=== PATIENT | female | born 1990 | race Caucasian/White ===

== ENCOUNTER 2018-08-14 19:51 | Inpatient (IN) | payer OTHER, SELFPAY ==
--- NOTE | 2018-08-14 | APP_PTH ---
PATIENT: MERVAT CASTANO LOC: MS2 U#:[id number] AGE/SX: 28/F ROOM: MS216 RE08/14/[address]: Dr. Harman Lopez MD : 1990 BED: 1 DIS: 08/17/2018 SPEC #: [id number] RECD: 08/15/18 07:45 STATUS: NIKI RERaven #: [id number] BAL: 08/14/18 00:[address]: Harman Lopez DEPT: SURGICAL PATHOLOGY RECD BY: Jordan Lynne ENTERED: 08/15/18 10:12 SP TYPE: APPENDIX OTHR DR: Dr. oYhan Campbell MD Tissues: Appendix, NOS Procedures: Surgery Specimen Level III HEADER OPERATION: Laparoscopic appendectomy PRE-OP DIAGNOSIS: Acute appendicitis TISSUE SUBMITTED: Appendix MICROSCOPIC DIAGNOSIS Appendix, appendectomy: Acute appendicitis. Acute serositis. Benign periappendiceal lymph node. AM:suleiman 08/16/18 COMMENT Case has been reviewed in consultation with Dr. Barrientos who concurs with the above diagnosis. IDC:SJ MICROSCOPIC DESCRIPTION Slides are reviewed. GROSS DESCRIPTION Received is one container labeled with the patient's name and designated appendix. The specimen consists of an appendix measuring 7 cm in length and up to 1 cm in diameter. The attached periappendiceal adipose tissue measures up to 2 cm in width. The serosa is congested. No obvious perforation is identified. Sections of periappendiceal adipose tissue reveal one possible lymph node measuring 0.6 cm in greatest dimension. The lumen does not contain any fecalith. Access Registrar sections are submitted in two cassettes. Cassette 2 also contains the possible lymph node. / TRAVON:suleiman 08/15/18 TC:2 CPT: 51219
[2018-08-14 19:52] VITALS: BP 145/97; PULSE 107; RESP 17; TEMP 36.4; O2SAT 99; BMI 22.2
[2018-08-14 20:16] LABS: Absolute Lymphocyte Count 1.35 X10^3/ul (0.83-4.51); Absolute Neutrophil Count 12.8 X10^3/uL (2.0-7.7); Basophil# 0.02 X10^3/uL; Basophil% 0.1 % (0-1); Eosinophil# 0.06 X10^3/uL; Eosinophils% 0.4 % (0-5); Hematocrit 37.2 % (37-47); Lymphocyte # 1.35 X10^3/ul (4.0); Lymphocyte % 8.9 % (19-41); Mean Corp Hgb Conc 32.3 g/gl (32-36); Mean Corpuscular Hgb 30.4 pg (27.0-32.0); Mean Corpuscular Volume 94.2 fL (81-99); Mean Platelet Vol. 9.7 fl (6.2-12.0); Monocyte# 0.97 X10^3/uL; Monocyte% 6.4 % (0-10); Neutrophil # 12.81 X10^3/uL (2.7-7.7); Neutrophil % 84.1 % (47-70); Platelet Count 304 K/mm3 (150-450); RBC Distribution Width CV 12.8 % (11.6-14.6); RBC Distribution Width SD 43.8 fl (35.1-43.9); Red Blood Count 3.95 M/mm3 (4.2-5.4); White Blood Count 15.2 K/mm3 (4.4-11.0)
[2018-08-14 20:17] LABS: POSITIVE COUNT NO; POSITIVE DIFFERENTIAL NO; POSITIVE MORPHOLOGY NO
[2018-08-14 20:30] LABS: Anion Gap 10 (5-15); BUN 7 mg/dL (7-18); BUN/Creat Ratio 11.4 RATIO (10-20); Calcium,Total 9.2 mg/dL (8.5-10.1); Chloride 100 mmol/L (98-107); Creatinine, Serum 0.61 mg/dL (0.55-1.02); EST Glomerular Filtration Rate 122 mL/min (>60); Est Glom Filt Rate - Afr Amer 147 mL/min (>60); Estimated Creatinine Clearance 96.86 ml/min; Glucose 107 mg/dL (74-106); Potassium 3.8 mmol/L (3.5-5.1); Sodium Level 136 mmol/L (136-145)
[2018-08-14 20:35] LABS: Pregnancy, Serum, hCG Quali. NEGATIVE Negative (0-9 Nonpreg)
--- NOTE | 2018-08-14 21:28 | CT_ITS ---
STUDY: CT ABDOMEN AND PELVIS WITHOUT CONTRAST REASON FOR EXAM: Female, 28 years old. Right lower quadrant pain RADIATION DOSAGE (If Supplied By Facility): CTDIvol = ( 6.05 ) mGy, DLP = ( 272.16 ) mGycm TECHNIQUE: Transaxial images were obtained from the dome of the diaphragm to the symphysis pubis without oral contrast, and without intravenous contrast. Sagittal and coronal images were reconstructed. Individualized dose optimization techniques were used for this CT. COMPARISON: None. FINDINGS: The visualized lung bases are unremarkable. The visualized portions of the heart are within normal limits. Normal liver. Normal gallbladder and extrahepatic biliary system. Normal spleen. Normal pancreas. Normal bilateral adrenal glands. Normal right kidney. Normal left kidney. Normal visualized stomach. Normal small intestine. Diffuse fecal retention in the colon. The appendix is distended with fluid with surrounding inflammation. Appendicoliths are noted with right lower quadrant free fluid. Appendicitis suspected in the proper clinical settings. There are gas droplets within the area of inflammation in the right lower quadrant. It is difficult to tell whether these are extraluminal or intraluminal in location. Right lower quadrant mesenteric adenopathy is noted. Normal abdominal aorta. Normal inferior vena cava. Adenopathy in the retroperitoneum. Normal urinary bladder. There is mild pelvic free fluid. Normal uterus. Normal abdominal wall. Normal osseous structures. CT/Abdomen/Pelvis without Cont IMPRESSION: There are findings compatible with acute appendicitis in the right lower quadrant. Right lower quadrant and pelvic free fluid Right lower quadrant mesenteric and retroperitoneal adenopathy. N.B. : The above information has been verbally conveyed by James Jones DO to Cande Menjivar MD, MD, on 08/14/2018 22:51:44 (ET). Electronically Signed: James Jones DO at 22:47 EST Tel [phone], Service support ,
[2018-08-14] MEDS: Morphine 4 MG/ML Syringe IV ×2 (22:06→23:27)
[2018-08-14] MEDS: Ondansetron 4 MG/2 ML Vial IV (22:06)
--- NOTE | 2018-08-14 22:43 | ED.VISSUMM ---
- ER Visit Summary Date of Service: 08/14/18 Chief Complaint: [Abdominal pain] History of Present Illness: The patient is a 28 F [presents to the emergency department complaint of right-sided abdominal pain. Initially 4 days ago. Patient states that she had some pain with some vomiting initially but then it seemed to go away patient returned 24 hours ago and she is had persistent pain to the right lower quadrant now. Patient has had a little bit of dysuria. She has had no appetite today. She has vomited x2 today. Patient has no medical history. Patient has had prior x2.] Physical Examination: [HEENT-PERRLA, EOMI. Cranial nerves II through XII grossly intact. TMs clear. Mucous membranes moist. No adenopathy. Cardiovascular-regular rate and rhythm without murmur or ectopy Lungs-clear to auscultation, chest wall stable without crepitus or subcu emphysema Abdomen-finished bowel sounds. Patient has tenderness to the right lower quadrant over McBurney's with guarding. Patient has a positive Rovsing sign. Patient has a positive heel strike. Extremities-intact ?4, normal range of motion, normal pulses, atraumatic] Test Results: [CBC with differential obtained showed a white blood cell count of 15.2, hemoglobin 12, hematocrit 37, platelets 304. Chemistries unremarkable. HCG was negative. CT scan of the abdomen pelvis without contrast on my interpretation shows acute appendicitis with a large appendicolith and a distended thick-walled appendix with inflammatory changes around the cecum. I do not appreciate any obvious perforation. Official radiology report pending.] Emergency Department Course and Treatment: [She was medicated with morphine and Zofran. Patient was ordered a liter normal same fluid bolus. Patient started on Zosyn 4.5 g IV. Case was discussed with general surgeon on-call Dr. Harman Lopez who will present to the emergency department to evaluate patient] Treatment Plan: [Surgeon to evaluate patient for OR Disposition: [Admit] Impression: [Acute appendicitis] This note was generated with [employer] dictation software. It may contain incorrect words, spelling, and punctuation that were not noted in review of the chart prior to signing ED Disposition - Plan for ED Patient: Chief Complaint: Abd Pain Referrals: Yohan Campbell [Primary Care Provider] -
--- NOTE | 2018-08-14 22:46 | ED.DCSUM_ITS ---
- ER Visit Summary Date of Service: 08/14/18 Chief Complaint: [Abdominal pain] History of Present Illness: The patient is a 28 F [presents to the emergency department complaint of right-sided abdominal pain. Initially 4 days ago. Patient states that she had some pain with some vomiting initially but then it seemed to go away patient returned 24 hours ago and she is had persistent pain to the right lower quadrant now. Patient has had a little bit of dysuria. She has had no appetite today. She has vomited x2 today. Patient has no medical history. Patient has had prior x2.] Physical Examination: [HEENT-PERRLA, EOMI. Cranial nerves II through XII grossly intact. TMs clear. Mucous membranes moist. No adenopathy. Cardiovascular-regular rate and rhythm without murmur or ectopy Lungs-clear to auscultation, chest wall stable without crepitus or subcu emphysema Abdomen-finished bowel sounds. Patient has tenderness to the right lower quadrant over McBurney's with guarding. Patient has a positive Rovsing sign. Patient has a positive heel strike. Extremities-intact ?4, normal range of motion, normal pulses, atraumatic] Test Results: [CBC with differential obtained showed a white blood cell count of 15.2, hemoglobin 12, hematocrit 37, platelets 304. Chemistries unremarkable. HCG was negative. CT scan of the abdomen pelvis without contrast on my interpretation shows acute appendicitis with a large appendicolith and a distend ed thick-walled appendix with inflammatory changes around the cecum. I do not appreciate any obvious perforation. Official radiology report pending.] Emergency Department Course and Treatment: [She was medicated with morphine and Zofran. Patient was ordered a liter normal same fluid bolus. Patient started on Zosyn 4.5 g IV. Case was discussed with general surgeon on-call Dr. Harman Lopez who will present to the emergency department to evaluate patient] Treatment Plan: [Surgeon to evaluate patient for OR Disposition: [Admit] Impression: [Acute appendicitis] This note was generated with [employer] dictation software. It may contain incorrect words, spelling, and punctuation that were not noted in review of the chart prior to signing ED Disposition - Plan for ED Patient: Chief Complaint: Abd Pain Referrals: Yohan Campbell [Primary Care Provider] -
[2018-08-14 22:59] VITALS: BP 118/70; PULSE 97; RESP 16; TEMP 38.4; O2SAT 100
[2018-08-14 23:01] VITALS: BP 118/70; PULSE 97; RESP 16; TEMP 38.4; O2SAT 100; BMI 22.2
--- NOTE | 2018-08-14 23:17 | HP.PCM_ITS ---
Problem List (1) Appendicitis Status: Acute Qualifiers: Appendicitis type: acute appendicitis Acute appendicitis type: with generalized peritonitis Appendicitis gangrene presence: unspecified whether gangrene present Appendicitis perforation presence: unspecified whether perforation present Appendicitis abscess presence: without abscess Qualified Code(s): K35.20 - Acute appendicitis with generalized peritonitis, without abscess History of Present Illness Date of Admission: 08/14/18 The patient is a 28 year old F presents to the emergency department complaint of right-sided abdominal pain. Initially 4 days ago. Patient states that she had some pain with some vomiting initially but then it seemed to go away patient returned 24 hours ago and she is had persistent pain to the right lower quadrant now. Patient has had a little bit of dysuria. She has had no appetite today. She has vomited x2 today. Patient has no medical history. Patient has had prior x2. CT scan showed a very dilated appendix with a large appendicolith. There did not appear to be any perforation. There did not appear to be any abscess formation. Past Medical History Allergies No Known Allergies Allergy (Verified 08/14/18 19:51) Home Medications: Ambulatory Orders Medication Instructions Recorded Vit No.130/Iron/Folic 1 tab PO TID 08/20/17 [ Tablet] Magnesium 1 tab PO DAILY 08/21/17 Surgical History: - - x2 Smoking Status: Never smoker - *Family History Maternal History Items: No pertinent history Review of Systems Constitutional: Reports: Anorexia, Chills, Weakness, Fatigue Cardiovascular: Denies: Chest Pain, Chest Pressure, Chest Tightness, Palpitations Respiratory: Denies: Cough, Hemoptysis, Shortness of breath at rest, Shortness of breath upon exertion, Wheezing Gastrointestinal: Denies: Abdominal Pain, Constipation, Diarrhea, Hematemesis, Nausea, Melena, Vomiting VTE Information - Inpt Only VTE Present on Admission: No VTE Mechan Device Prophylaxis: SCD's VTE Pharm Prophylaxis ordered?: No Reason prophylaxis not ordered:: Treatment Not Indicated Patient Problems: Active and Suspected Problems Appendicitis (Acute) - Physical Exam General: Alert, Oriented x3, Cooperative Lungs: Clear to auscultation Cardiovascular: Regular rate, Regular Rhythm, No murmurs Abdomen: Rebound Tenderness - She has positive Rovsing sign, Tender Extremities: No clubbing, No cyanosis, No edema Vital Signs Temp Pulse Resp BP Pulse Ox 101.2 F H 97 16 118/70 100 08/14/18 23:01 08/14/18 23:01 08/14/18 23:01 08/14/18 23:01 08/14/18 23:01 Oxygen Delivery Method Room Air Weight: 113 lb 15.664 oz Body Mass Index (BMI) 22.2 Laboratory Tests Past 24 Hrs 08/14/18 08/14/18 08/14/18 20:09 20:09 20:09 WBC 15.2 H RBC 3.95 L Hgb 12.0 Hct 37.2 MCV 94.2 MCH 30.4 MCHC 32.3 RDW 12.8 RDW Differential 43.8 Plt Count 304 MPV 9.7 Immature Gran % (Auto) 0.100 Neut % (Auto) 84.1 H Lymph % (Auto) 8.9 L [place] % (Auto) 6.4 Eos % (Auto) 0.4 Baso % (Auto) 0.1 Absolute Neuts (auto) 12.8 H Absolute Lymphs (auto) 1.35 Total Counted Not Reportable Sodium 136 Potassium 3.8 Chloride 100 Carbon Dioxide 26.0 Anion Gap 10 BUN 7 Creatinine 0.61 Estim Creat Clear Calc 96.86 Est GFR (MDRD) Af Amer 147 Est GFR (MDRD) Non-Af 122 BUN/Creatinine Ratio 11.4 Glucose 107 H Calcium 9.2 Serum , Qual NEGATIVE Assessment/Plan All Active Problems Appendicitis (Acute) PROM with onset of labor more than 24 hours following rupture (Acute) Previous delivery affecting (Acute) Plan will be to perform a laparoscopic appendectomy. Procedure was explained in very common terms all questions asked were answered. Majority of risk are associated with bleeding and infection possible delayed infections and possible need for a drain or possibly to be done in an open fashion. Her presentation is not within a 24-hour. And is much longer I have a feeling this is going to be very difficult acute appendicitis.
[2018-08-15] VITALS (11 sets, daily range): BP systolic 100–118; BP diastolic 55–80; PULSE 81–107; RESP 14–20; TEMP 36.7–38.5; O2SAT 95–100; BMI 22.2; BMI 22.3
--- NOTE | 2018-08-15 00:24 | OP.PCM_ITS ---
Problem List (1) Appendicitis Status: Acute Qualifiers: Appendicitis type: acute appendicitis Acute appendicitis type: with generalized peritonitis Appendicitis gangrene presence: with gangrene Appendicitis perforation presence: with perforation Appendicitis abscess presence: without abscess Qualified Code(s): K35.20 - Acute appendicitis with generalized peritonitis, without abscess; K35.891 - Other acute appendicitis without perforation, with gangrene Report of Operation Date of Procedure: 08/15/18 Pre-Operative Diagnosis: Acute appendicitis Post-Operative Diagnosis: Same Surgery/Procedure Performed:: Laparoscopic appendectomy Type of Anesthesia:: General Anesthesiologist: Donis Caruso Description of Procedure: Patient was brought into the operating room. Placed in the supine position. Under excellent general endotracheal intubation Loo catheter was placed and the abdomen was sterilely prepped and draped in usual fashion. Local was injected infraumbilically a curvilinear incision was made. Fascia was grasped with a Grecia varies needle was placed inside the abdomen the abdomen was insufflated to 15 torr. A 10/12 trocar was placed without difficulty. A suprapubic #5 trocar was placed in the left lower quadrant #5 trocar was placed both of these under direct visualization without injury to underlying structures. Patient was placed in the headdown and rotated to the left. She was noted to have a retrocecal appendix is I dissected the cecum free and I came to where the appendix was I encountered a gangrenous appendix with pus in it. I mobilized the terminal ileum I mobilized the right colon not all the way up to the hepatic flexure. I then dissected the appendix free using the Enseal to come across the mesoappendix and then I came across the base of the appendix with a 45 linear cutter x2. I was able to remove the fecalith without difficulty. I expected the base of the appendix and the cecum which was very indurated and very hard and I did not think that I wanted to do a right hemicolectomy on her since I did not see any stool leaving nor did I see any other pus that I did not drain and irrigate well. I decided to place a 15 round Eddie-Albarran drain through a separate right sided incision. I sutured to the skin with a 3-0 nylon I placed it posteriorly in a retrocecal fashion and then down into the pelvis. I irrigated the right upper quadrant in the pelvis good hemostasis was noted. I removed the trochars under direct visualization good hemostasis was noted. I closed the fascia the umbilical port with figure-of- eight stitch of 0 Vicryl. Skin incisions were closed with septicum stitches of 4-0 Monocryl. This is an extremely difficult appendicitis her symptoms actually started almost 5 days ago and I have a feeling that she is going to need to remain in the hospital several days to receive IV antibiotics. I am going to have to leave the drain in until she is eating well and moving her bowels. I am concerned that we could have a leak given how indurated this is. That being said I thought it was safe not to do a limited cecectomy given the amount of induration that was involved nor did I think doing a right hemicolectomy on her was in her best interest at this juncture. - Admit VTE Documentation VTE Present on Admission: No VTE Mechan Device Prophylaxis: SCD's VTE Pharm Prophylaxis ordered?: No Reason prophylaxis not ordered:: Treatment Not Indicated
[2018-08-15] MEDS: Bupivacaine 0.5% PF 10 ML VIAL (00:31)
[2018-08-15] MEDS: Lactated Ringers 1,000 ML 125 ML IV ×3 (02:34→16:55)
[2018-08-15] MEDS: Ibuprofen 400 MG Tablet 800 MG PO (04:58)
[2018-08-15] MEDS: Piperacil/Tazobactam 3.375 GM/50 ML ML IV ×3 (05:13→21:37)
[2018-08-15] MEDS: HYDROmorphone 1 MG/ML Syringe IV ×3 (07:59→18:17)
[2018-08-15 08:04] LABS: Absolute Lymphocyte Count 0.42 X10^3/ul (0.83-4.51); Absolute Neutrophil Count 8.4 X10^3/uL (2.0-7.7); Basophil# 0.01 X10^3/uL; Basophil% 0.1 % (0-1); Hematocrit 35.3 % (37-47); Hemoglobin 11.4 g/dl (12.0-15.0); Lymphocyte # 0.42 X10^3/ul (4.0); Lymphocyte % 4.4 % (19-41); Mean Corp Hgb Conc 32.3 g/gl (32-36); Mean Corpuscular Hgb 30.5 pg (27.0-32.0); Mean Corpuscular Volume 94.4 fL (81-99); Mean Platelet Vol. 9.5 fl (6.2-12.0); Monocyte# 0.69 X10^3/uL; Monocyte% 7.2 % (0-10); Neutrophil # 8.42 X10^3/uL (2.7-7.7); Neutrophil % 88.2 % (47-70); Platelet Count 242 K/mm3 (150-450); RBC Distribution Width CV 12.9 % (11.6-14.6); RBC Distribution Width SD 44.7 fl (35.1-43.9); Red Blood Count 3.74 M/mm3 (4.2-5.4); White Blood Count 9.6 K/mm3 (4.4-11.0)
[2018-08-15 08:06] LABS: Differential Indicated SCAN CRITERIA MET; POSITIVE COUNT NO; POSITIVE DIFFERENTIAL YES; POSITIVE MORPHOLOGY NO
[2018-08-15 08:07] LABS: ALB/GLOB Ratio 0.8 RATIO (0.9-2.4); AST(SGOT) 8 U/L (15-37); Alanine Aminotransfer ALT/SGPT 12 U/L (13-56); Albumin, Serum 2.8 g/dL (3.2-5.0); Alkaline Phosphatase 40 U/L (45-117); Anion Gap 8 (5-15); BUN 5 mg/dL (7-18); BUN/Creat Ratio 9.6 RATIO (10-20); Calcium,Total 7.9 mg/dL (8.5-10.1); Chloride 104 mmol/L (98-107); Creatinine, Serum 0.52 mg/dL (0.55-1.02); EST Glomerular Filtration Rate 146 mL/min (>60); Est Glom Filt Rate - Afr Amer 176 mL/min (>60); Estimated Creatinine Clearance 113.63 ml/min; Globulin 3.6 g/dL (2.2-4.2); Glucose 116 mg/dL (74-106); Potassium 3.4 mmol/L (3.5-5.1); Protein, Total 6.4 g/dL (6.4-8.2); Sodium Level 137 mmol/L (136-145)
--- NOTE | 2018-08-15 09:24 | PN.SURG_ITS ---
Patient Problems: Active and Suspected Problems Appendicitis (Acute) Subjective: Patient evaluated resting comfortably in bed. She notes generalized abdominal discomfort. She notes abdominal pain is improved since admission. She denies nausea, vomiting. She continues to have the Loo catheter. Negative flatus, BM. - Physical Exam General: Alert, Oriented x3, Cooperative Abdomen: Soft, Hypoactive Bowel Sounds, Distended, Tender - generalized tenderness and more tendernes in the lower bilateral quadrants. RAMBO drain intact. Vital Signs Temp Pulse Resp BP Pulse Ox 99.0 F 101 H 20 H 105/67 98 08/15/18 07:51 08/15/18 07:51 08/15/18 07:51 08/15/18 07:51 08/15/18 07:51 Oxygen Delivery Method Room Air Weight: 113 lb 15.664 oz Body Mass Index (BMI) 22.2 Intake and Output for Last 24 Hours 08/13/18 08/14/18 08/15/18 23:59 23:59 23:59 Intake Total 2210.8 / 2210.8 Output Total 937 / 937 Balance 1273.8 / 1273.8 Laboratory Tests Past 24 Hrs 08/14/18 08/14/18 08/14/18 20:09 20:09 20:09 WBC 15.2 H RBC 3.95 L Hgb 12.0 Hct 37.2 MCV 94.2 MCH 30.4 MCHC 32.3 RDW 12.8 RDW Differential 43.8 Plt Count 304 MPV 9.7 Immature Gran % (Auto) 0.100 Neut % (Auto) 84.1 H Lymph % (Auto) 8.9 L [place] % (Auto) 6.4 Eos % (Auto) 0.4 Baso % (Auto) 0.1 Absolute Neuts (auto) 12.8 H Absolute Lymphs (auto) 1.35 Total Counted Not Reportable Sodium 136 Potassium 3.8 Chloride 100 Carbon Dioxide 26.0 Anion Gap 10 BUN 7 Creatinine 0.61 Estim Creat Clear Calc 96.86 Est GFR (MDRD) Af Amer 147 Est GFR (MDRD) Non-Af 122 BUN/Creatinine Ratio 11.4 Glucose 107 H Calcium 9.2 Total Bilirubin AST ALT Alkaline Phosphatase Total Protein Albumin Globulin Albumin/Globulin Ratio Serum , Qual NEGATIVE 08/15/18 08/15/18 07:40 07:40 WBC 9.6 RBC 3.74 L Hgb 11.4 L Hct 35.3 L MCV 94.4 MCH 30.5 MCHC 32.3 RDW 12.9 RDW Differential 44.7 H Plt Count 242 MPV 9.5 Immature Gran % (Auto) 0.100 Neut % (Auto) 88.2 H Lymph % (Auto) 4.4 L [place] % (Auto) 7.2 Eos % (Auto) 0.0 Baso % (Auto) 0.1 Absolute Neuts (auto) 8.4 H Absolute Lymphs (auto) 0.42 L Total Counted Pending Sodium 137 Potassium 3.4 L Chloride 104 Carbon Dioxide 25.0 Anion Gap 8 BUN 5 L Creatinine 0.52 L Estim Creat Clear Calc 113.63 Est GFR (MDRD) Af Amer 176 Est GFR (MDRD) Non-Af 146 BUN/Creatinine Ratio 9.6 L Glucose 116 H Calcium 7.9 L Total Bilirubin 1.90 H AST 8 L ALT 12 L Alkaline Phosphatase 40 L Total Protein 6.4 Albumin 2.8 L Globulin 3.6 Albumin/Globulin Ratio 0.8 L Serum , Qual Medical Necessity - Tobacco Use Smoking Status: Never smoker Assessment/Plan All Active Problems Appendicitis (Acute) PROM with onset of labor more than 24 hours following rupture (Acute) Previous delivery affecting (Acute) I am following this patient in conjunction with Dr. Lopez S/p laparoscopic appendectomy for gangrenous appendix. Continue IV antibiotics Continue Loo catheter Continue clear liquids until GI function returns Encourage ambulation and I.S. We will continue to monitor this patient Code Visit Inpatient E&M: 10349 Subs Hosp L1 - POST-OP
[2018-08-15] MEDS: Potassium Chloride 10mEq/100mL 10 MEQ/100 ML IV.SOLN. 100 MEQ IV BOLUS ×3 (11:25→15:12)
--- NOTE | 2018-08-15 13:20 | CASEMGMT ---
KEVIN LIRIANO ASSESSMENT To room to meet with patient for initial transition planning/care coordination assessment. KEVIN LIRIANO introduced self and role at [facility]. Pt voices understanding and consents to assessment at this time. Pt resting in bed in no distress at this time. Pt is A/O at this time and answers all questions appropriately. Care providers, pharmacy, and demographics verified at this time. PCP: Yohan Campbell Specialists: none Preferred Pharmacy: [facility] Insurance: [employer] Living Will/HPOA: Pt does not currently have LW/HCPOA and declines info at this time. LNOK: Living Arrangements: Lives with and 2 children. Independent. Transportation: Pt states no transportation concerns at this time. DME: Uses no DME and denies needs. Pt wishes to return home and states has no concerns with going home at time of discharge. Pt and state they have good family support. CM to follow for any discharge planning/needs that may arise. Pt voices no further concerns/needs at this time. Advised pt to ask for CM if any further questions/concerns/needs arise. Voices understanding. Plan: Home with and family support. Jerica PADGETT RN, CM
[2018-08-15] MEDS: Ondansetron 4 MG/2 ML Vial IV ×2 (13:38→19:57)
[2018-08-15] MEDS: 0.9% NaCl Peripheral Flush Adult/Peds IV ×2 (13:38→18:17)
[2018-08-16 02:07] VITALS: BP 102/61; PULSE 84; RESP 16; TEMP 37.2; O2SAT 98
[2018-08-16] MEDS: Lactated Ringers 1,000 ML 125 ML IV ×3 (02:13→16:55)
[2018-08-16 02:26] LABS: Bacteria 0 SEEN /hpf (None Seen); Mucous, Urine 0 SEEN /hpf (<or=2+); Red Blood Cells-Urine 0 SEEN /hpf (0-5); Squamous Epithelial Cells - UA 0 SEEN /hpf (5-10); White Blood Cells 0 SEEN /hpf (0-5)
[2018-08-16 02:32] LABS: Color, Urine Yellow (Yellow); Glucose, Dipstick Normal (Normal); Ketone-Dipstick 50 mg/dl (Negative); Leukocyte Esterase-Dipstick Negative /ul (Negative); Nitrite-Dipstick Negative (Negative); Occult Blood-Urine Negative /ul (Negative); Protein-Dipstick Negative (Negative); Urine Bilirubin Dipstick Negative (Negative); Urine Clarity Clear (Clear); Urine Urobilinogen Normal (Normal)
[2018-08-16] MEDS: Piperacil/Tazobactam 3.375 GM/50 ML ML IV ×3 (05:38→22:20)
--- NOTE | 2018-08-16 07:17 | PCM.PN.SRG ---
Patient Problems: Active and Suspected Problems Appendicitis (Acute) Subjective: Patient evaluated resting comfortably in bed. She notes her pain has improved since yesterday. She has been passing flatus. Negative BM. Denies nausea, vomiting overnight. She is tolerating clear liquids. RAMBO output was 370 cc yesterday and 110 cc so far today. Drainage appears serosanguineous with a slight milky yellow appearance. - Physical Exam General: Alert, Oriented x3, Cooperative Abdomen: Bowel Sounds Present, Soft, Distended - slightly, Tender - generalized, - - Incisions c/d/i. No erythema or infection noted. RAMBO drain intact SA mixed with milky yellow fluid noted Vital Signs Temp Pulse Resp BP Pulse Ox 99.0 F 84 16 102/61 98 08/16/18 02:07 08/16/18 02:07 08/16/18 02:07 08/16/18 02:07 08/16/18 02:07 Oxygen Delivery Method Room Air Weight: 113 lb 15.664 oz Body Mass Index (BMI) 22.2 Intake and Output for Last 24 Hours 08/14/18 08/15/18 08/16/18 23:59 23:59 23:59 Intake Total 3758.8 / 3758.8 2288 / 2288 Output Total 2782 / 2782 1335 / 1335 Balance 976.8 / 976.8 953 / 953 Laboratory Tests Past 24 Hrs 08/15/18 08/15/18 08/16/18 07:40 07:40 00:10 WBC 9.6 RBC 3.74 L Hgb 11.4 L Hct 35.3 L MCV 94.4 MCH 30.5 MCHC 32.3 RDW 12.9 RDW Differential 44.7 H Plt Count 242 MPV 9.5 Immature Gran % (Auto) 0.100 Neut % (Auto) 88.2 H Lymph % (Auto) 4.4 L [place] % (Auto) 7.2 Eos % (Auto) 0.0 Baso % (Auto) 0.1 Absolute Neuts (auto) 8.4 H Absolute Lymphs (auto) 0.42 L Total Counted Not Reportable Sodium 137 Potassium 3.4 L Chloride 104 Carbon Dioxide 25.0 Anion Gap 8 BUN 5 L Creatinine 0.52 L Estim Creat Clear Calc 113.63 Est GFR (MDRD) Af Amer 176 Est GFR (MDRD) Non-Af 146 BUN/Creatinine Ratio 9.6 L Glucose 116 H Calcium 7.9 L Total Bilirubin 1.90 H AST 8 L ALT 12 L Alkaline Phosphatase 40 L Total Protein 6.4 Albumin 2.8 L Globulin 3.6 Albumin/Globulin Ratio 0.8 L Urine Color Yellow Urine Clarity Clear Urine pH 8.0 Ur Specific [place] 1.010 Urine Protein Negative Urine Glucose (UA) Normal Urine Ketones 50 H Urine Occult Blood Negative Urine Nitrite Negative Urine Bilirubin Negative Urine Urobilinogen Normal Ur Leukocyte Esterase Negative Urine RBC 0 SEEN Urine WBC 0 SEEN Ur Squamous Epith Cells 0 SEEN Urine Bacteria 0 SEEN Urine Mucus 0 SEEN Medical Necessity - Tobacco Use Smoking Status: Never smoker Assessment/Plan All Active Problems Appendicitis (Acute) PROM with onset of labor more than 24 hours following rupture (Acute) Previous delivery affecting (Acute) I am following this patient in conjunction with Dr. oLpez S/p laparoscopic appendectomy for gangrenous appendix. Continue IV antibiotics Discontinue Loo catheter Continue clear liquids Increase to full liquids at lunch Encourage ambulation and I.S. Ambulate in the hallway We will continue to monitor this patient Code Visit Inpatient E&M: 10802 Subs Hosp L1 - POST-OP
[2018-08-16 09:00] VITALS: BP 111/73; PULSE 84; RESP 16; TEMP 36.7; O2SAT 99
[2018-08-16] MEDS: Ibuprofen 400 MG Tablet 800 MG PO ×2 (09:03→17:03)
[2018-08-16 14:00] VITALS: BP 108/68; PULSE 79; RESP 16; TEMP 36.4; O2SAT 99
--- NOTE | 2018-08-16 14:08 | DCINST_ITS ---
Discharge Diet: Light diet - advance as tolerated Discharge Activity: May Not Drive - for 3-5 days or while taking narcotic pain meds. May shower in (days): 1 Call your doctor if your incision/area has: Continuous Slow Oozing, Sudden Increased Bleeding, Increased Pain/ Swelling, Increased Redness, Foul Smelling Discharge Call your doctor if you observe: Fever of 101 or Higher Suture Line Care: Avoid Pulling/Pushing, Avoid Pinching/Bending Cleanse incision/area with: Soap & Water Additional Dressing/Incision Instructions:: Keep dressing clean and dry. Change or remove dressing in 2 days. Leave steri strips for 1 week. May protect with a gauze bandaid. Medications to take at Discharge Vit No.130/Iron/Folic [ Tablet] 1 tab PO TID 08/20/17 Magnesium 1 tab PO DAILY 08/21/17 Amox/Clavulanate Tablet [Augmentin Tablet] 875 mg PO Q12H #10 tablet 08/16/18 Oxycodone [Oxyir] 5 mg PO Q6H PRN PRN 3 Days #10 tablet 08/16/18 Allergies/Adverse Reactions: Allergies No Known Allergies Allergy (Verified 08/14/18 19:51) The following prescriptions were given: Oxycodone [Oxyir] 5 mg PO Q6H PRN PRN 3 Days #10 tablet PRN Reason: Severe Pain (-05/16) Amox/Clavulanate Tablet [Augmentin Tablet] 875 mg PO Q12H #10 tablet Primary Care Physician: Yohan Campbell [Primary Care Provider] - Test Results: Test results from this visit will be discussed in further detail at your follow- up appointment, if applicable. Please Follow Up With: Bettina Gardner PA-C - [phone] When: 10 days
[2018-08-16 21:57] VITALS: BP 109/65; PULSE 85; RESP 14; TEMP 36.9; O2SAT 97
[2018-08-17] MEDS: Ibuprofen 400 MG Tablet 800 MG PO ×2 (02:21→13:04)
[2018-08-17 02:28] VITALS: BP 115/68; PULSE 86; RESP 14; TEMP 37.6; O2SAT 99
[2018-08-17] MEDS: Piperacil/Tazobactam 3.375 GM/50 ML ML IV (05:52)
[2018-08-17] MEDS: Lactated Ringers 1,000 ML 125 ML IV (05:52)
[2018-08-17 08:47] VITALS: BP 109/75; PULSE 77; RESP 16; TEMP 36.6; O2SAT 99
--- NOTE | 2018-08-20 12:31 | PCM.DC.SUM ---
Discharge Date and Diagnosis Date of Admission: 08/14/18 Date of Discharge: 08/17/18 - Primary Discharge Diagnosis Acute gangrenous appendicitis Hospital Course and Treatment Operations: appendectomy - Laparoscopic appendectomy Summary of Care Provided: The patient is a 28 year old F who presented with a 5 day history of RLQ abdominal pain. Dr. Lopez performed a laparoscopic appendectomy on 08/14/18. Patient tolerated the procedure well. Patient had an uneventful hospitalization. Upon discharge, patient had minimal amount of abdominal discomfort. she was tolerating a diet. She denies nausea, vomiting, fever. RAMBO drain intact and patient was shown how to empty and record. Patient was discharged on antibiotics. - Physical Exam General: Alert, Oriented x3, Cooperative Abdomen: Bowel Sounds Present, Soft, Distended - slightly, Tender - generalized, - - Incisions c/d/i. No erythema or infection noted. RAMBO drain intact. Vital Signs Temp Pulse Resp BP Pulse Ox 97.8 F 77 16 109/75 99 08/17/18 08:47 08/17/18 08:47 08/17/18 08:47 08/17/18 08:47 08/17/18 08:47 Oxygen Delivery Method Room Air Weight: 113 lb 15.664 oz Body Mass Index (BMI) 22.2 Discharge Diet: Light diet - advance as tolerated Discharge Activity: May Not Drive - for 3-5 days or while taking narcotic pain meds. May shower in (days): 1 Call your doctor if your incision/area has: Continuous Slow Oozing, Sudden Increased Bleeding, Increased Pain/ Swelling, Increased Redness, Foul Smelling Discharge Call your doctor if you observe: Fever of 101 or Higher Suture Line Care: Avoid Pulling/Pushing, Avoid Pinching/Bending Cleanse incision/area with: Soap & Water Additional Dressing/Incision Instructions:: Keep dressing clean and dry. Change or remove dressing in 2 days. Leave steri strips for 1 week. May protect with a gauze bandaid. Home Medications: Medications to take at Discharge Vit No.130/Iron/Folic [ Tablet] 1 tab PO TID 08/20/17 Magnesium 1 tab PO DAILY 08/21/17 Amox/Clavulanate Tablet [Augmentin Tablet] 875 mg PO Q12H #10 tablet 08/16/18 Following Prescrptions Were Given to Patient: Amox/Clavulanate Tablet [Augmentin Tablet] 875 mg PO Q12H #10 tablet Primary Care Physician: Yohan Campbell [Primary Care Provider] - Please Follow Up With: Bettina Gardner PA-C - [phone] When: 10 days Disposition: Home Minutes spent on discharge:: 20 Patient Condition:: Stable Medical Necessity - Tobacco Use Smoking Status: Never smoker Meaningful Use Info Meaningful Use Diagnoses (Choose all that apply): None applicable Code Visit Inpatient E&M: 12012 Disch Hosp
== END 2018-08-17 13:25 | disposition home or self-care (01) | DRG 343 ==
LOC: ED 21:37 → MS2 08-15 06:27
PROVIDERS: Admitting Provider Surgery; Emergency Provider Emergency Medicine; Family Provider Family Medicine; PCP Family Medicine; Referring Provider Surgery; Visit Provider Surgery
PROC: 0DTJ4ZZ Resection of Appendix, Percutaneous Endoscopic Approach (ICD-10-PCS; CPT 44970; principal; 2018-08-14 23:30)
DX: K35.891 Other acute appendicitis without perforation, with gangrene (principal)
CPT/HCPCS: 36415; 74176; 80048; 80053; 81001; 84703; 85025; 88304; 99282; J7050; J7120; A4216; C1760; J2405

== ENCOUNTER → 2018-08-21 14:40 | Outpatient (CLI) | payer OTHER, SELFPAY ==
[2018-08-15 02:07] VITALS: BMI 22.2
[2018-08-21 14:44] LABS: Mucous, Urine 0 SEEN /hpf (<or=2+); Red Blood Cells-Urine 0 SEEN /hpf (0-5); White Blood Cells 0 SEEN /hpf (0-5)
[2018-08-21 15:16] LABS: Color, Urine Yellow (Yellow); Glucose, Dipstick Normal (Normal); Ketone-Dipstick Negative (Negative); Leukocyte Esterase-Dipstick Negative /ul (Negative); Nitrite-Dipstick Negative (Negative); Occult Blood-Urine Negative /ul (Negative); Protein-Dipstick Negative (Negative); Urine Bilirubin Dipstick Negative (Negative); Urine Clarity Clear (Clear); Urine Urobilinogen Normal (Normal)
[2018-08-21 15:41] LABS: Bacteria 0 SEEN /hpf (None Seen); Squamous Epithelial Cells - UA 5-10 SEEN /hpf (5-10)
== END ==
PROVIDERS: Family Provider Family Medicine; PCP Family Medicine; Visit Provider Physician Assistant
DX: R30.0 Dysuria (principal)
CPT/HCPCS: 81001

== ENCOUNTER 2022-10-05 15:57 | Outpatient (CLI) | payer OTHER, SELFPAY ==
[2022-10-05 16:48] LABS: hCG Titer Quant., Serum 344 mIU/mL (1-3)
== END 2022-10-05 23:59 | disposition home or self-care (01) ==
LOC: PAVLAB 15:58
PROVIDERS: PCP Family Medicine; Referring Provider Advanced Practice Midwife; Visit Provider Advanced Practice Midwife
DX: Z32.01 Encounter for pregnancy test, result positive (principal)
CPT/HCPCS: 36415; 84702

== ENCOUNTER 2024-08-22 09:48 | Inpatient (IN) | payer SELFPAY, OTHER ==
[2024-08-22] VITALS (15 sets, daily range): BP systolic 114–137; BP diastolic 69–92; PULSE 64–95; RESP 14–17; TEMP 36.4–37; O2SAT 96–99; BMI 24.8
[2024-08-22] MEDS: Lactated Ringers 1,000 ML 999 ML IV (10:20)
[2024-08-22 10:38] LABS: Absolute Lymphocyte Count 1.36 X10^3/uL (0.83-4.51); Absolute Neutrophil Count 5.9 X10^3/uL (2.0-7.7); Basophil# 0.03 X10^3/uL; Basophil% 0.4 % (0-1); Eosinophil# 0.06 X10^3/uL; Eosinophils% 0.8 % (0-5); Hematocrit 35.3 % (37-47); Hemoglobin 12.1 g/dL (12.0-15.0); Lymphocyte # 1.36 X10^3/ul (0.83-4.51); Lymphocyte % 17.1 % (19-41); Mean Corp Hgb Conc 34.3 g/dL (32-36); Mean Corpuscular Hgb 32.4 pg (27.0-32.0); Mean Corpuscular Volume 94.4 fL (81-99); Mean Platelet Vol. 10.7 fl (6.2-12.0); Monocyte# 0.55 X10^3/uL; Monocyte% 6.9 % (0-10); NRBC Flagged by Analyzer 0 % (0-5); Neutrophil # 5.93 X10^3/uL (2.7-7.7); Neutrophil % 74.3 % (47-70); Platelet Count 161 K/mm3 (150-450); RBC Distribution Width CV 13.5 % (11.6-14.6); RBC Distribution Width SD 46.1 fl (35.1-43.9); Red Blood Count 3.74 M/mm3 (4.2-5.4)
[2024-08-22] MEDS: Acetaminophen 500 MG Tablet 1000 MG PO ×2 (10:45→17:54)
[2024-08-22] MEDS: Lactated Ringers 1,000 ML 150 ML IV (11:14)
[2024-08-22 11:34] LABS: Syphilis Antibodies Non-reactive
[2024-08-22] MEDS: Cefazolin 2 GM in Syringe IV (11:53)
[2024-08-22] MEDS: Sodium Citrate/Citric Acid 30 ML UDC PO (11:53)
--- NOTE | 2024-08-22 12:01 | PCM.HP.OB ---
HPI - General General Date of Admission: 08/22/24 Date of Service: 08/22/24 HPI Narrative MERVAT CASTANO, is a 34 F who presents for repeat . Maternal Data Information TEQUILA Calculator Estimated Delivery Date Method Current WG Current Estimate 08/29/24 Manual 39w 0d PFSH [facility] Medical History (Updated 08/22/24 @ 12:[address] Ernie Keller MD) Appendicitis Home Medications ?Medication ?Instructions ?Recorded ?Last Taken ?Type vitamins-iron fumarate 27 1 tab PO TID 08/20/17 08/19/17 12:00 History mg iron-folic acid 0.8 mg tablet Magnesium 1 tab PO DAILY supplement 08/21/17 08/19/17 08:00 History Allergy/AdvReac Type Severity Reaction Status Date / Time No Known Allergies Allergy Verified 08/22/24 10:33 Surgical History (Updated 08/22/24 @ 12:[address] Ernie Keller MD) s/p lap appy (~08/16/18) Previous delivery affecting Social History (Updated 08/27/18 @ 13:26 by Bettina CHUA, PA-C) Smoking Status: Never smoker History Elective abortions Hx Para 2 Spontaneous abortions Hx # Term Pregnancies Ectopic pregnancies Hx # Pregnancies Multiple births # of living children Vital Signs Vital Signs Vital Signs: 08/22/24 10:21 08/22/24 10:21 08/22/24 10:21 Temperature 98.6 F Temperature Source Temporal Pulse Rate Respiratory Rate 16 Blood Pressure Blood Pressure Mean Blood Pressure Source Blood Pressure Position Blood Pressure Location Pulse Ox Oxygen Delivery Method 08/22/24 10:39 Temperature 98.4 F Temperature Source Oral Pulse Rate 65 Respiratory Rate 16 Blood Pressure 125/86 H Blood Pressure Mean 99 Blood Pressure Source Monitor Blood Pressure Position Semi-Fowlers Blood Pressure Location Left Arm Pulse Ox 99 Oxygen Delivery Method Room Air Weight Weight: 140 lb 4 oz Body Mass Index (BMI) 24.8 Physical Exam Const alert, oriented x3 and no apparent distress Chest inspection of chest normal Resp normal respiratory effort GI soft to palpation, non-tender and non-distended Inspection: gravid Labs Labs Labs: Blood Type O POSITIVE Antibody Screen NEGATIVE Hct 35.3 % (37-47) L Hgb 12.1 g/dL (12.0-15.0) Syphilis Total Ab Non-reactive Rhogam given: No Assessment & Plan (1) Previous delivery affecting : COMMENT: @ 39 weeks PLAN: Plan Admit to L&D. Proceed with repeat section. Informed consent signed. Routine care.
--- NOTE | 2024-08-22 13:01 | EX.PCM.OBRPT ---
Maternal Data Information TEQUILA Calculator Estimated Delivery Date Method Current WG Current Estimate 08/29/24 Manual 39w 0d Operative Report (OB) Cecarean Details Procedure Type: low transverse Date of Procedure: 08/22/24 Procedure Start Time: 12:18 Procedure Stop Time: 13:00 Pre-Operative Diagnosis: Repeat Elective Post-Operative Diagnosis: Same as Pre-operative diagnosis Classification: Scheduled Type of Anesthesia: Spinal Antibiotic Given: Ancef 2 grams IV x1 Drain: Loo to straight drain Estimated Blood Loss: 800ml Fluids Replaced: 1000ml Findings Description of surgery: The patient was taken to the operating room where spinal anesthesia was placed & found to be adequate. She was prepped and draped in the dorsal supine position with a leftward tilt. A Pfannenstiel skin incision was made in the incision line of her prior incision above the symphysis pubis and carried through to the underlying fascia with the scalpel. The fascia was incised incised in the midline and extended laterally with the Kellogg scissors. The rectus muscles were in the midline and the peritoneum was entered carefully and bluntly. The peritoneal incision was stretched and the bladder blade was inserted. Vesicouterine peritoneum was tented up, incised & then bladder flap created gently. The uterine incision was made in a low transverse fashion with the scalpel and extended superiorly and inferiorly with blunt dissection. The 's head was brought to the incision in the flexed position and delivered without difficulty. The head was gently guided to allow delivery of the anterior and posterior shoulders. The body then delivered with fundal pressure in the standard fashion. The 3VC cord was clamped and cut in slightly delayed fashion. The infant was handed off to the waiting pediatric clinical dietician. The placenta was delivered with fundal massage and gentle traction in the standard fashion. The uterus was exteriorized and cleared of clots and debris. The uterine incision was closed with #1 Vicryl suture in a running locked fashion. Monocryl suture was used in an imbricating fashion. 2 additional figure of 8 sutures were placed on the right side of the uterine incision using vicryl for excellent hemostasis. The incision was examined and was found to be hemostatic. The uterus was returned to the abdominal cavity. After irrigating Zbigniew was placed over the uterine incision as some areas were denuded (but hemostatic). The rectus muscle was examined and any bleeding was Bovie cauterized. The fascia was closed with PDS suture in a running standard fashion. The subcutaneous tissue was examining and any bleeding was Bovie cauterized. The subcutaneous tissue was reapproximated with interrupted sutures. The skin was closed in a subcuticular fashion by the PAPIER MACHE' MOLDER while I was present in the OR. The remainder of the procedure was performed by me with assistance. Surgical findings: normal maternal uterus and adnexa Presentation: Vertex Amniotic Membrane Rupture Type: Artificial Amniotic Fluid Description: Clear Placental Delivery Description: Expressed Placenta Disposition: [facility] Specimen collected: No Cord Vessel Description: 3 Vessels Cord Entanglement: None Infant A gender: Female (Sheeba Carballo) (1 minute): 9 (5 minute): 9 Delayed Cord Clamping: Yes Human Relations Teacher polymerization supervisor: Yes Technology Program Manager: Gael Linton Tasks completed by learning and development assistant: Closing, Dissecting tissue and Retracting Complications Complications: No
[2024-08-22] MEDS: Oxytocin 15 Units/NS 250ml 15 UNITS/250 ML IV.SOLN 83 UNITS IV (13:15)
[2024-08-22] MEDS: Ketorolac 30 MG/ML Syringe IV ×2 (14:55→21:11)
[2024-08-22] MEDS: 0.9% Saline Lock 10 ML Syringe IV (21:13)
[2024-08-23] MEDS: Acetaminophen 500 MG Tablet 1000 MG PO ×4 (00:16→17:38)
[2024-08-23] MEDS: Enoxaparin 40 MG/0.4 ML Syringe SC (00:16)
[2024-08-23 00:20] VITALS: BP 116/73; PULSE 71; RESP 16; TEMP 36.8; O2SAT 98
[2024-08-23] MEDS: Ketorolac 30 MG/ML Syringe IV ×2 (03:25→10:29)
[2024-08-23 03:30] VITALS: BP 111/67; PULSE 90; RESP 12; TEMP 36.9; O2SAT 97
[2024-08-23] MEDS: 0.9% Saline Lock 10 ML Syringe IV ×2 (03:37→10:29)
[2024-08-23 06:47] LABS: Hematocrit 32.2 % (37-47); Hemoglobin 10.9 g/dL (12.0-15.0); Mean Corp Hgb Conc 33.9 g/dL (32-36); Mean Corpuscular Hgb 32.6 pg (27.0-32.0); Mean Corpuscular Volume 96.4 fL (81-99); Mean Platelet Vol. 10.4 fl (6.2-12.0); Platelet Count 141 K/mm3 (150-450); RBC Distribution Width CV 13.6 % (11.6-14.6); RBC Distribution Width SD 47.9 fl (35.1-43.9); Red Blood Count 3.34 M/mm3 (4.2-5.4); White Blood Count 10.4 K/mm3 (4.4-11.0)
--- NOTE | 2024-08-23 07:37 | PN.OBGYN_ITS ---
Subjective Subjective Patient seen at bedside. Denies headache, vision changes, SOB or CP. Loo catheter just removed. Has not voided on her own. independently. Objective Data Objective Data Vital Signs: Vital Signs Temp Pulse Resp BP Pulse Ox O2 Del Method 98.4 F 90 12 111/67 97 Room Air 08/23/24 03:30 08/23/24 03:30 08/23/24 03:30 08/23/24 03:30 08/23/24 03:30 08/23/24 03:30 Oxygen Delivery Method Room Air Weight: 140 lb 4 oz Body Mass Index (BMI) 24.8 Intake & Output: Intake and Output for Last 24 Hours 08/21/24 08/22/24 08/23/24 23:59 23:59 23:59 Intake Total 2270 / 2270 Output Total 1050 / 1050 900 / 900 Balance 1220 / 1220 -900 / -900 Lab / Micro Data Attestation: I reviewed the patient's lab results. 08/23/24 06:20 Labs: Laboratory Results - last 24 hr 08/22/24 10:20: WBC 8.0, RBC 3.74 L, Hgb 12.1, Hct 35.3 L, MCV 94.4, MCH 32.4 H, MCHC 34.3, RDW Std Deviation 46.1 H, RDW Coeff of Kayy 13.5, Plt Count 161, MPV 10.7, Immature Gran % (Auto) 0.500, Neut % (Auto) 74.3 H, Lymph % (Auto) 17.1 L, Burnet % (Auto) 6.9, Eos % (Auto) 0.8, Baso % (Auto) 0.4, Absolute Neuts (auto) 5.9, Absolute Lymphs (auto) 1.36, Nucleated RBC % 0, Syphilis Total Ab Non- reactive, Blood Type O POSITIVE, Antibody Screen NEGATIVE 08/23/24 06:20: WBC 10.4, RBC 3.34 L, Hgb 10.9 L, Hct 32.2 L, MCV 96.4, MCH 32.6 H, MCHC 33.9, RDW Std Deviation 47.9 H, RDW Coeff of Kayy 13.6, Plt Count 141 L, MPV 10.4 ROS Eyes Eyes: Denies blurry vision, spots in vision or tunnel vision ENT HEENT: Denies dizziness or headache(s) Cardiovascular Cardiovascular: Reports systems reviewed and no addt'l complaints, except as documented, dizziness and dyspnea Respiratory/Chest Respiratory/Chest: Reports systems reviewed and no addt'l complaints, except as documented Gastrointestinal Gastrointestinal: Reports systems reviewed and no addt'l complaints, except as documented Genitourinary Genitourinary: Reports systems reviewed and no addt'l complaints, except as documented Neurologic Neurologic: Denies abnormal speech, dizziness, headache(s), syncope or vertigo Psychiatric Psychiatric: Reports systems reviewed and no addt'l complaints, except as documented Physical Exam Const alert and no apparent distress General Appearance: cooperative Orientation / Consciousness: awake, oriented to person and oriented to place Exam Limitations: no limitations HEENT normocephalic Eyes General Eye: normal appearance of both eyes Neck full ROM Chest Chest: symmetrical chest wall rise Resp normal respiratory effort, normal air movement and clear to auscultation bilaterally Auscultation: clear to auscultation bilaterally Cardio regular rate and regular rhythm GI normal to inspection, nondistended, normoactive bowel sounds Uterus Palpation: uterus fundus firm Extremity full ROM and no calf tenderness Skin no rashes or lesions noted Neuro oriented x3 Psych mental status grossly normal and activity/motor behavior normal Assessment & Plan (1) Status post delivery: (2) Mother currently breast-feeding: (3) Post-operative pain: PLAN: Plan POD 1 Repeat C/S Increase ambulation today Pain control support Anticipate discharge home tomorrow
[2024-08-23 07:45] VITALS: BP 119/76; PULSE 81; RESP 16; TEMP 36.9; O2SAT 97
[2024-08-23] MEDS: Senna/Docusate Sodium 1 Tablet PO (10:30)
[2024-08-23 14:20] VITALS: BP 118/64; PULSE 87; RESP 16; TEMP 37.1; O2SAT 98
[2024-08-23] MEDS: Ibuprofen 600 MG Tablet PO ×2 (16:08→22:04)
[2024-08-23 20:34] VITALS: BP 122/81; PULSE 82; RESP 16; TEMP 36.7; O2SAT 97
[2024-08-24] MEDS: Enoxaparin 40 MG/0.4 ML Syringe SC (00:07)
[2024-08-24] MEDS: Acetaminophen 500 MG Tablet 1000 MG PO ×2 (00:08→06:40)
[2024-08-24 02:12] VITALS: BP 114/75; PULSE 82; RESP 16; TEMP 36.6; O2SAT 98
[2024-08-24] MEDS: Ibuprofen 600 MG Tablet PO ×2 (04:03→09:54)
--- NOTE | 2024-08-24 08:05 | PCM.PN.OB ---
Subjective Subjective Doing well. Ambulating and voiding without difficulty. Mild lochia. Breast feeding. Objective Data Objective Data Vital Signs: Vital Signs Temp Pulse Resp BP Pulse Ox O2 Del Method 98 F 82 16 114/75 98 Room Air 08/24/24 02:12 08/24/24 02:12 08/24/24 02:12 08/24/24 02:12 08/24/24 02:12 08/24/24 02:12 Oxygen Delivery Method Room Air Weight: 63.616 kg Body Mass Index (BMI) 24.8 Intake & Output: Intake and Output for Last 24 Hours 08/22/24 08/23/24 08/24/24 23:59 23:59 23:59 Intake Total 2270 / 2270 Output Total 1050 / 1050 1900 / 1900 Balance 1220 / 1220 -1900 / -1900 Lab / Micro Data 08/23/24 06:20 ROS Constitutional Constitutional: Denies fatigue, fever(s) or malaise Eyes Eyes: Denies change in vision ENT HEENT: Denies dizziness or headache(s) Cardiovascular Cardiovascular: Denies chest pain, dyspnea or lightheadedness Respiratory/Chest Respiratory/Chest: Denies cough or dyspnea Gastrointestinal Gastrointestinal: Denies change in bowel habits Genitourinary Genitourinary: Denies burning urination or genital lesions Integumentary Integumentary: Denies rash Neurologic Neurologic: Denies confusion, dizziness, headache(s), numbness or weakness Physical Exam Const alert General Appearance: cooperative GI GI Narrative: soft, moderate distention, fundus firm, appropriately tender. Abdominal bandage clean dry and intact Assessment & Plan (1) Status post delivery: PLAN: Plan Discharge home
--- NOTE | 2024-08-24 08:06 | PCM.DC.SUM ---
Providers Date of Admission: 08/22/24 Date of Discharge: 08/24/24 Primary Care Physician: Dr. Yohan Campbell MD Reason For Visit: REPEAT Diagnosis Discharge Diagnosis (1) Status post delivery: Status: Acute Code(s): Z98.891 - History of uterine scar from previous surgery Plan Discharge home Medications at Discharge Home Medications vitamins-iron fumarate 27 mg iron-folic acid 0.8 mg tablet 1 tab PO TID 08/20/17 Magnesium 1 tab PO DAILY supplement 08/21/17 Hospital Course Operations section Procedures None Summary of Care Provided Minutes Spent on Discharge: 20 Hospital Course: Scheduled repeat c/s. Uncomplicated delivery and course. Physical Exam Const alert General Appearance: cooperative GI GI Narrative: soft, moderate distention, fundus firm, appropriately tender. Abdominal bandage clean dry and intact Weight / BMI Weight Weight: 63.616 kg Body Mass Index (BMI) 24.8 ABG / Lab / Microbiology Data 08/23/24 06:20 D/C Instructions Discharge Diet: No restrictions May resume sexual activity in: 4-6 weeks Lifting Restrictions: 20 pounds Additional Activity Instructions: Nothing in the vagina for 4-6 weeks. You may return to work/school in 6 weeks. Call your doctor if your incision/area has: Continuous Slow Oozing, Sudden Increased Bleeding, Increased Pain/ Swelling, Increased Redness and Foul Smelling Discharge Call your doctor if you observe: Fever of 101 or Higher and Using more than 1 pad per hour (for 2 hours) Suture Line Care: Avoid Pulling/Pushing and Avoid Pinching/Bending Cleanse incision/area with: Keep Dressing Clean & Dry DC O2, CPAP, BIPAP Needs Home O2 Discharge instructions: No Please Follow Up With: Eula Parker MD When: Call to make an appointment for an incision check in 1-2 [phone]. You will need a post check in 6 weeks. Meaningful Use Info Meaningful Use Meaningful Use Diagnoses (Choose all that apply): None applicable Ischemic Stroke Statin Dosing Therapy Reference: STATIN DOSE THERAPY REFERENCE: * Patients > 75 years receive moderate or high dose statin therapy. * Patients 75 years or YOUNGER should receive HIGH intensity statin dose unless contraindicated. You will be required to document reason for non-treatment if statin daily dose does not meet guidelines. HIGH DOSE STATIN THERAPY DAILY Atorvastatin > than or = to 40 mg Rosuvastatin > than or = to 20 mg Amlodipine + Atorvastatin > than or = to 2.5/40 mg Ezetimibe + Simvastatin 10/80 mg Simvastatin 80mg Discharge Plan Admission Admit Date/Time: 08/22/24 09:48 Attending Provider: Ernie Keller Primary Care Provider: Yohan Campbell Discharge Orders/Prescriptions Prescriptions: No Action vit-iron fum-folic ac 1 EACH tablet 1 tab PO TID Patient Comments: States is a natural supplement Magnesium 1 tab PO DAILY Patient Comments: supplement Referrals / Follow Up: Yohan Campbell MD [Primary Care Provider] -
[2024-08-24 09:00] VITALS: BP 120/80; PULSE 80; RESP 16; TEMP 37.3
== END 2024-08-24 10:30 | disposition home or self-care (01) | DRG 788 ==
PROVIDERS: Admitting Provider Obstetrics & Gynecology; PCP Family Medicine; Referring Provider Obstetrics & Gynecology; Visit Provider Obstetrics & Gynecology
PROC: 10D00Z1 Extraction of Products of Conception, Low, Open Approach (ICD-10-PCS; CPT 59514; principal; 2024-08-22 11:45)
DX: O34.219 Maternal care for unspecified type scar from previous cesarean delivery (principal); Z37.0 Single live birth; Z3A.39 39 weeks gestation of pregnancy
CPT/HCPCS: 59025; 59050; 85025; 85027; 86780; 86850; 86900; 86901; 99221; A4216; G0378; J2405